=== PATIENT | female | born 1980 | race Two or more races ===

== ENCOUNTER 2018-02-27 01:59 | Emergency (ER) | payer BC ==
[2018-02-27 02:16] VITALS: BP 129/82
--- NOTE | 2018-02-27 10:08 | EKG REPORT ---
SEVERITY:- NORMAL ECG - SINUS RHYTHM : Confirmed by: Arvind Hall MD 27-Feb-2018 10:07:05
== END 2018-02-27 02:17 | disposition left against medical advice (07) ==
LOC: ER 01:59
DX: Z53.21 Procedure and treatment not carried out due to patient leaving prior to being seen by health care provider (principal)
CPT/HCPCS: 93005; 93010

== ENCOUNTER 2018-02-27 20:04 | Emergency (ER) | payer BC, OTHER ==
[2018-02-27] MEDS ORDERED: ASPIRIN 81 MG TABLET, CHEWABLE PO ONE (20:30)
--- NOTE | 2018-02-27 20:32 | ER Document Report ---
ED Medical Screen (RME) - General Chief Complaint: Chest Pain Stated Complaint: CHEST PAIN Time Seen by Provider: 02/27/18 20:25 Mode of Arrival: Ambulatory Information source: Patient, Relative Notes: 37-year-old female with no reported past medical history presents with complaint of chest pain. Patient states chest pain started 3 days prior to arrival. It is located on the left side of her chest described as a constant dull ache that intermittently worsens and radiates down her left arm. Patient has had associated shortness of breath. She has tried lidocaine and Tylenol without relief. Patient reports that she has been under significant stress secondary to the of her 9-year-old niece that occurred 3 weeks ago. She denies prior similar symptoms, family history of early cardiac disease. She is a former smoker. I have greeted and performed a rapid initial assessment of this patient. A comprehensive ED assessment and evaluation of the patient, analysis of test results and completion of medical decision making process we will be contacted by additional ED providers. PHYSICAL EXAMINATION: GENERAL: Well-appearing, well-nourished and in no acute distress. HEAD: Atraumatic, normocephalic. EYES: Pupils equal round extraocular movements intact, conjunctiva are normal. ENT: Nares patent NECK: Normal range of motion LUNGS: No respiratory distress, clear to auscultation bilaterally Musculoskeletal: Normal range of motion NEUROLOGICAL: Normal speech, normal gait. PSYCH: Tearful SKIN: Warm, Dry, normal turgor, no rashes or lesions noted. TRAVEL OUTSIDE OF THE [place] IN LAST 30 DAYS: No - HPI Onset: Other Onset/Duration: Constant Quality of pain: Achy, Dull Severity: Mild Associated Symptoms: Chest pain, Shortness of breath Exacerbated by: Denies Relieved by: Denies Similar symptoms previously: No Recently seen / treated by doctor: No - Related Data Smoking: Non-smoker Frequency of alcohol use: None Drug Abuse: None Allergies/Adverse Reactions: No Known Allergies Allergy (Unverified 02/27/18 02:16) Past Medical History - Social History Chew tobacco use (# tins/day): No Frequency of alcohol use: None Drug Abuse: None Renal/ Medical History: Denies: Hx Peritoneal Dialysis Physical Exam - Vital signs Vitals: Temp Pulse Resp BP Pulse Ox 97.7 F 75 18 117/80 98 02/27/18 20:20 02/27/18 20:20 02/27/18 20:20 02/27/18 20:20 02/27/18 20:20 Course - Vital Signs Vital signs: Temp Pulse Resp BP Pulse Ox 97.7 F 75 18 117/80 98 02/27/18 20:20 02/27/18 20:20 02/27/18 20:20 02/27/18 20:20 02/27/18 20:20 Doctor's Discharge - Discharge Referrals: VISHNU CHENEY MD [Primary Care Provider] - Follow up as needed
[2018-02-27 21:07] LABS: ABSOLUTE EOSINOPHILS # (AUTO) 0.1 10^3/uL (0.0-0.6); ABSOLUTE LYMPHOCYTES (AUTO) 2.4 10^3/uL (0.5-4.7); ABSOLUTE MONOCYTES (AUTO) 0.8 10^3/uL (0.1-1.4); ABSOLUTE NEUT (AUTO) 5.7 10^3/uL (1.7-8.2); BASOPHILS % (AUTO) 0.5 % (0-2); EOSINOPHILS % (AUTO) 1.6 % (0-6); HEMATOCRIT 44.4 % (36.0-47.0); HEMOGLOBIN 15.1 g/dL (12.0-15.5); LYMPHOCYTES % (AUTO) 26.9 % (13-45); MEAN CORPUSCULAR HEMOGLOBIN 29.2 pg (27.0-33.4); MEAN CORPUSCULAR VOLUME 86 fl (80-97); MONOCYTES % (AUTO) 8.4 % (3-13); PLATELET COUNT 422 10^3/uL (150-450); RED BLOOD COUNT 5.16 10^6/uL (3.72-5.28); RED CELL DISTRIBUTION WIDTH 14.2 % (11.5-14.0); SEGMENTED NEUTROPHILS % (AUTO) 62.6 % (42-78); TOTAL CELLS COUNTED % (AUTO) 100 %; WHITE BLOOD COUNT 9.1 10^3/uL (4.0-10.5)
--- NOTE | 2018-02-27 21:19 | EKG REPORT ---
SEVERITY:- NORMAL ECG - SINUS RHYTHM : Confirmed by: Arvind Hall MD 27-Feb-2018 21:19:18
[2018-02-27 21:22] LABS: ANION GAP 10 (5-19); BLOOD UREA NITROGEN 20 mg/dL (7-20); CALCIUM 9.9 mg/dL (8.4-10.2); CARBON DIOXIDE 24 mmol/L (22-30); CHLORIDE 104 mmol/L (98-107); GLUCOSE 94 mg/dL (75-110); POTASSIUM 4.9 mmol/L (3.6-5.0); SODIUM 137.9 mmol/L (137-145)
--- NOTE | 2018-02-27 21:37 | RADIOLOGY REPORT (SQ) ---
EXAM DESCRIPTION: Two view chest CLINICAL HISTORY: 37 years Female Chest pain COMPARISON: None. COMPLETED DATE/TME: 02/27/2018 20:29 FINDINGS: The cardiomediastinal silhouette appears unremarkable. No consolidating infiltrates or pleural effusions. No pneumothorax. IMPRESSION: No acute abnormality is identified.
[2018-02-27] MEDS ORDERED: KETOROLAC TROMETHAMINE INJ/PF 30 MG/1 ML SDV IV ONE (22:42)
--- NOTE | 2018-02-27 23:25 | ER Document Report ---
ED General - General Chief Complaint: Chest Pain Stated Complaint: CHEST PAIN Time Seen by Provider: 02/27/18 20:25 Mode of Arrival: Ambulatory Notes: Patient is a 37-year-old female who presents with chest pain 3 days. Patient reports the pain is on the left side of her chest with radiation into her left arm. Patient states that the pain is worse with deep breaths. Patient denies any cardiac history. Patient states she recently drove from [place] to [place] last week, recently quit smoking, does not take any hormone replacement or control pills as she has a copper IUD. TRAVEL OUTSIDE OF THE [place] IN LAST 30 DAYS: No - Related Data Allergies/Adverse Reactions: No Known Allergies Allergy (Verified 02/27/18 21:54) Past Medical History - General Information source: Patient, Relative - Social History Smoking Status: Former Smoker Chew tobacco use (# tins/day): No Frequency of alcohol use: None Drug Abuse: None Family History: Reviewed & Not Pertinent Patient has suicidal ideation: No Patient has homicidal ideation: No - Medical History Medical History: Negative Renal/ Medical History: Denies: Hx Peritoneal Dialysis Surgical Hx: Negative - Immunizations Immunizations up to date: Yes Review of Systems - Review of Systems Constitutional: No symptoms reported EENT: No symptoms reported Cardiovascular: See HPI Respiratory: See HPI Gastrointestinal: No symptoms reported Genitourinary: No symptoms reported Female Genitourinary: No symptoms reported Musculoskeletal: No symptoms reported Skin: No symptoms reported Hematologic/Lymphatic: No symptoms reported Neurological/Psychological: No symptoms reported Physical Exam - Vital signs Vitals: Temp Pulse Resp BP Pulse Ox 97.7 F 75 18 117/80 98 02/27/18 20:20 02/27/18 20:20 02/27/18 20:20 02/27/18 20:20 02/27/18 20:20 - Notes Notes: PHYSICAL EXAMINATION: GENERAL: Well-appearing, well-nourished and in no acute distress. HEAD: Atraumatic, normocephalic. EYES: Pupils equal round and reactive to light, extraocular movements intact, conjunctiva are normal. ENT: Nares patent, oropharynx clear without exudates. Moist mucous membranes. NECK: Normal range of motion, supple without lymphadenopathy LUNGS: Breath sounds clear to auscultation bilaterally and equal. No wheezes rales or rhonchi. HEART: Regular rate and rhythm without murmurs ABDOMEN: Soft, nontender, nondistended abdomen. No guarding, no rebound. No masses appreciated. Female : deferred Musculoskeletal: Normal range of motion, no pitting or edema. No cyanosis. NEUROLOGICAL: Cranial nerves grossly intact. Normal speech, normal gait. Normal sensory, motor exams PSYCH: Normal mood, normal affect. SKIN: Warm, Dry, normal turgor, no rashes or lesions noted. Course - Re-evaluation Re-evalutation: CBC, comprehensive metabolic panel and troponin are negative. No indication for repeat troponin as the patient reports the chest pain has been ongoing 3 days. Chest x-ray is unremarkable. EKG is a normal sinus rhythm, rate 73, normal axis, no ST segment elevations or depressions. Discussed risk factors for pulmonary embolism with the patient, will add on a d-dimer and if negative patient will be discharged home. D-dimer is negative. Patient will be discharged home in stable condition, patient reports that she will follow up with her primary care provider this week , patient will return to the emergency department if the pain worsens. - Vital Signs Vital signs: Temp Pulse Resp BP Pulse Ox 97.7 F 75 13 121/69 98 02/27/18 20:20 02/27/18 20:20 02/27/18 23:01 02/27/18 23:00 02/27/18 23:01 - Laboratory Result Diagrams: 02/27/18 20:52 02/27/18 20:52 Laboratory results interpreted by me: 02/27/18 02/27/18 20:52 20:52 RDW 14.2 H Est GFR (Non-Af Amer) 54 L Discharge - Discharge Clinical Impression: Chest pain Qualifiers: Chest pain type: unspecified Qualified Code(s): R07.9 - Chest pain, unspecified Condition: Stable Disposition: HOME, SELF-CARE Additional Instructions: You were seen today for chest pain. The exact cause of your pain is unclear. However, based on your cardiac enzyme testing, chest x-ray, and EKG it does not appear that it is from an immediately life-threatening cause at this time. Although your testing here is normal is critical that you follow-up with your primary care physician for continued evaluation of this chest pain. Please return to emergency department immediately if you have worsening of your chest pain, shortness of breath, vomiting, become unable to exert yourself due to pain or difficulty breathing, you pass out, or have any pain that radiates into your arms, jaw, or back. Please also return if you have any additional symptoms that are concerning to you. Prescriptions: Ketorolac Tromethamine [Toradol 10 mg Tablet] 10 mg PO Q8HP PRN #16 tablet PRN Reason: Forms: Return to Work Referrals: VISHNU CHENEY MD [ACTIVE STAFF] - Follow up as needed
[2018-02-27 23:54] VITALS: BP 112/67
== END 2018-02-28 00:03 | disposition home or self-care (01) ==
LOC: ER 20:04
DX: R07.9 Chest pain, unspecified (principal); M79.602 Pain in left arm; Z87.891 Personal history of nicotine dependence
CPT/HCPCS: 93005; 99285; 96374; 36415; 85025; 80048; 84484; 85379; 71046; 93010; J1885

== ENCOUNTER → 2019-07-08 | Outpatient (CLI) | payer OTHER ==
--- NOTE | 2019-07-08 13:08 | RADIOLOGY REPORT (SQ) ---
EXAM DESCRIPTION: PELVIS AP COMPLETED DATE/TIME: 07/08/2019 12:46 pm REASON FOR STUDY: (T19.3XXA)FOREIGN BODY IN UTERUS, INITIAL ENCOUNTER T19.3XXA FOREIGN BODY IN UTER US, INITIAL ENCOUNTER COMPARISON: None. NUMBER OF VIEWS: One view TECHNIQUE: AP Pelvis LIMITATIONS: None. FINDINGS: MINERALIZATION: Normal. HIPS: No acute fracture or dislocation. . PELVIS AND SACRUM: Intact. PUBIS AND ISCHIUM: The ilioischial and iliopectineal lines are intact. There is no diastasis of the pubic symphysis. LOWER LUMBAR SPINE: No abnormality. SOFT TISSUES: IUD in place. OTHER: No other finding. IMPRESSION: 1. No acute osseous abnormality of the pelvis. 2. IUD in place. TECHNICAL DOCUMENTATION: JOB ID: [id number] [employer]- All Rights Reserved Reading location - IP/workstation name: [email or web address]
== END ==
LOC: RAD 12:17
PROVIDERS: ATTEND Obstetrics & Gynecology
DX: T83.89XA Other specified complication of genitourinary prosthetic devices, implants and grafts, initial encounter (principal)
CPT/HCPCS: 72170